=== PATIENT | male | born 1950 | race Caucasian/White ===

== ENCOUNTER 2017-08-17 11:07 | Emergency (ER) | payer MEDICARE ==
[2017-08-17 11:19] VITALS: BP 122/74
--- NOTE | 2017-08-17 14:39 | Emergency Department Report ---
ED Back Pain/Injury HPI - General Chief Complaint: Back Pain/Injury Stated Complaint: BACK PAIN Time Seen by Provider: 08/17/17 13:45 Source: patient Limitations: No Limitations - History of Present Illness Initial Comments: 67-year-old male past medical history hypertension, obesity, [place], subdural hemorrhage presents with complaint of several days of left-sided lower back pain radiating to left buttock and left leg. Patient states that it was particularly bothersome when he woke up out of bed this morning. States it feels like a cramping sensation in his left buttock. Denies saddle paresthesias denies bladder or bowel incontinence. Patient is ambulatory without assistance and uses a cane on occasion and is walking with a cane today. Patient is fully lucid denies fevers or chills denies abdominal pain denies nausea or vomiting denies dysuria or increased urinary frequency. Patient states he has had this issue intermittently in the past. Denies any falls or direct trauma or excessive strain. States he took a Tylenol at home but it did not help his pain which is why he came here. MD Complaint: back pain Onset/Timin -: days(s) Similar Symptoms Previously: Yes Place: home Severity: moderate Severity scale (0 -10): 5 Quality: aching Consistency: intermittent - Related Data Home Medications Medication Instructions Recorded Confirmed Last Taken Atorvastatin Calcium [Lipitor] 1 tab PO DAILY 07/23/14 07/23/14 07/28/14 Clopidogrel Bisulfate [Plavix] 1 tab PO DAILY 07/23/14 07/23/14 07/28/14 Metoprolol [Lopressor TAB] 1 tab PO DAILY 07/23/14 07/23/14 07/28/14 Bimatoprost 0.01%(Nf) [Lumigan] 1 drop OU DAILY 07/26/14 07/26/14 07/28/14 Previous Rx's Medication Instructions Recorded Last Taken Type oxyCODONE /ACETAMINOPHEN [Percocet 1 tab PO Q6HR PRN #20 tablet 03/08/15 Unknown Rx 5/325] Acetaminophen 500 mg PO Q6H PRN #30 tablet 08/17/17 Unknown Rx traMADol [Ultram 50 MG tab] 50 mg PO Q6HR PRN #10 tablet 08/17/17 Unknown Rx Allergies Allergy/AdvReac Type Severity Reaction Status Date / Time No Known Allergies Allergy Verified 08/17/17 11:16 ED Review of Systems ROS: Stated complaint: BACK PAIN Other details as noted in HPI Constitutional: denies: chills, fever Eyes: denies: eye pain, eye discharge, vision change ENT: denies: ear pain, throat pain Respiratory: denies: cough, shortness of breath, wheezing Cardiovascular: denies: chest pain, palpitations Endocrine: no symptoms reported Gastrointestinal: denies: abdominal pain, nausea, diarrhea Genitourinary: denies: urgency, dysuria Musculoskeletal: denies: back pain, joint swelling, arthralgia Skin: denies: rash, lesions Neurological: denies: headache, weakness, paresthesias Psychiatric: denies: anxiety, depression Hematological/Lymphatic: denies: easy bleeding, easy bruising ED Past Medical Hx - Past Medical History Hx Hypertension: Yes Hx Heart Attack/AMI: Yes Hx Asthma: No Hx COPD: No Hx Tuberculosis: No Hx HIV: No - Surgical History Hx Open Heart Surgery: Yes (CARDIAC BYPASS 2011) Additional Surgical History: "brain surgery". CABG 2011 - Social History Smoking Status: Current Every Day Smoker Substance Use Type: Alcohol - Medications Home Medications: Home Medications Medication Instructions Recorded Confirmed Last Taken Type Atorvastatin Calcium [Lipitor] 1 tab PO DAILY 07/23/14 07/23/14 07/28/14 History Clopidogrel Bisulfate [Plavix] 1 tab PO DAILY 07/23/14 07/23/14 07/28/14 History Metoprolol [Lopressor TAB] 1 tab PO DAILY 07/23/14 07/23/14 07/28/14 History Bimatoprost 0.01%(Nf) [Lumigan] 1 drop OU DAILY 07/26/14 07/26/14 07/28/14 History oxyCODONE /ACETAMINOPHEN [Percocet 1 tab PO Q6HR PRN #20 tablet 03/08/15 Unknown Rx 5/325] Acetaminophen 500 mg PO Q6H PRN #30 tablet 08/17/17 Unknown Rx traMADol [Ultram 50 MG tab] 50 mg PO Q6HR PRN #10 tablet 08/17/17 Unknown Rx ED Physical Exam - General Limitations: No Limitations General appearance: alert, in no apparent distress - Head Head exam: Present: atraumatic, normocephalic - Eye Eye exam: Present: normal appearance, PERRL, EOMI - ENT ENT exam: Present: mucous membranes moist - Neck Neck exam: Present: normal inspection - Respiratory Respiratory exam: Present: normal lung sounds bilaterally. Absent: respiratory distress - Cardiovascular Cardiovascular Exam: Present: regular rate, normal rhythm. Absent: systolic murmur, diastolic murmur, rubs, gallop - GI/Abdominal GI/Abdominal exam: Present: soft, normal bowel sounds - Rectal Rectal exam: Present: deferred - Extremities Exam Extremities exam: Present: normal inspection - Back Exam Back exam: Present: normal inspection, full ROM (flexion/extension, lateral rotation intact), paraspinal tenderness (left sided paraspinal discomfort) - Expanded Back Exam Expanded Back exam: Present: normal rectal tone - Neurological Exam Neurological exam: Present: alert, oriented X3, CN II-XII intact, normal gait - Expanded Neurological Exam Expanded Patient oriented to: Present: person, place, time Cranial nerves: EOM's Intact: Normal Cerebellar function: Finger to Nose: Normal Sensory exam: Upper Extremity Light Touch: Normal, Lower Extremity Light Touch: Normal Motor strength exam: RUE: 5, LUE: 5, RLE: 5, LLE: 5 Best Eye Response (Grimes): (4) open spontaneously Best Motor Response (Roderick): (6) obeys commands Best Verbal Response (Grimes): (5) oriented Grimes Total: 15 - Psychiatric Psychiatric exam: Present: normal affect, normal mood - Skin Skin exam: Present: warm, dry, intact, normal color. Absent: rash ED Course Vital Signs 08/17/17 11:16 Temperature 97.8 F Pulse Rate 79 Respiratory 18 Rate Blood Pressure 122/74 O2 Sat by Pulse 95 Oximetry ED Medical Decision Making - Lab Data Result diagrams: 08/17/17 15:25 08/17/17 15:25 - Medical Decision Making A/P: Lower back pain, sciatica 1-short course tramadol, Tylenol when necessary 2-ct shows degenerative spinal changes, no clinical sinss of cauda equina, pt ambulatory, rectal tone good, no bladder or bowl incontinence. ct abdomen otheriwse unremarkable, small nonobstrucing calculi 3-pt feels signficantly better before discharge, given f/u wiht PMD and orthopedics 4- labs and UA unremarkable Critical care attestation.: If time is entered above; I have spent that time in minutes in the direct care of this critically ill patient, excluding procedure time. ED Disposition Clinical Impression: Sciatica of left side Lower back pain Qualifiers: Chronicity: acute Back pain laterality: left Sciatica presence: without sciatica Qualified Code(s): M54.5 - Low back pain Disposition: TO HOME OR SELFCARE Is pt being admited?: No Does the pt Need Aspirin: No Condition: Stable Instructions: Sciatica (ED), Lumbar Radiculopathy (ED), Back Pain (ED) Prescriptions: Acetaminophen 500 mg PO Q6H PRN #30 tablet PRN Reason: Pain traMADol [Ultram 50 MG tab] 50 mg PO Q6HR PRN #10 tablet PRN Reason: Pain Referrals: BOZENA DESHPANDE III, APRN-HERVE [Primary Care Provider] - 3-5 Days [facility] [Provider Group] - 3-5 Days NIYA GARCÍA MD [Staff Physician] - 3-5 Days Time of Disposition: 17:27 Print Language: HAITIAN
[2017-08-17] MEDS ORDERED: ZOFRAN ODT PO ONE (14:40)
[2017-08-17] MEDS ORDERED: NORCO 5/325 PO ONE (14:40)
[2017-08-17 14:55] LABS: Bilirubin,Urine NEG (Negative); Blood,Urine NEG (Negative); Ketones,Urine NEG (Negative); Leukocyte Esterase,Urine NEG (Negative); Mucus,Urine FEW /HPF; Nitrite,Urine NEG (Negative); Protein,Urine <15 mg/dL mg/dL (Negative)
[2017-08-17] MEDS ORDERED: MORPHINE IM ONE (15:16)
[2017-08-17 15:48] LABS: Basophils % (Auto) 0.9 % (0.0-1.8); Eosinophils % (Auto) 2.1 % (0.0-4.3); Hematocrit 48.2 % (35.5-45.6); Hemoglobin 16.1 gm/dl (11.8-15.2); Mean Corpuscular HGB Conc 33 % (32-34); Mean Corpuscular Hemoglobin 32 pg (28-32); Mean Corpuscular Volume 95 fl (84-94); Platelet Count 171 K/mm3 (140-440); Red Blood Count 5.09 M/mm3 (3.65-5.03); Red Cell Distribution Width 14.1 % (13.2-15.2); White Blood Count 4.7 K/mm3 (4.5-11.0)
[2017-08-17 15:56] LABS: Alanine Aminotransferase 38 units/L (7-56); Albumin/Globulin Ratio 1.1 %; Alkaline Phosphatase 102 units/L (35-129); Anion Gap 20 mmol/L; BUN/Creatinine Ratio 16; Blood Urea Nitrogen 11 mg/dL (9-20); Carbon Dioxide 23 mmol/L (22-30); Creatine Kinase 59 units/L (55-170); Glucose 117 mg/dL (75-100); Potassium 4.2 mmol/L (3.6-5.0); Sodium 139 mmol/L (137-145); Total Protein 7.5 g/dL (6.3-8.2)
[2017-08-17 16:11] LABS: Bilirubin,Direct < 0.2 mg/dL (0-0.2); Bilirubin,Indirect 0.5 mg/dL
--- NOTE | 2017-08-17 16:51 | Cat Scan Report ---
FINAL REPORT PROCEDURE: CT ABDOMEN PELVIS WO CON TECHNIQUE: Computerized axial tomography of the abdomen and pelvis was performed without intravenous contrast. This study is performed without intravascular contrast material and its sensitivity for abdominal and pelvic pathology, including neoplasms, inflammation, abscess, free fluid, thrombosis, arterial dissection and infarction, is reduced compared with a contrast enhanced study. HISTORY: L-sideflank pain. ?renal colic COMPARISON: No prior studies are available for comparison. FINDINGS: Visualized lower thorax: There is small focus of ground-glass opacity in the lateral left lower lobe. Liver: Normal size and attenuation. Spleen: Normal size and attenuation. Gallbladder and biliary system: Normal. Pancreas: Normal. Adrenals: Normal. Kidneys: There is a 2 millimeter nonobstructive calculus in the left kidney upper pole. No hydronephrosis bilaterally. GI tract: The appendix is visualized and does not appear inflamed. Scattered colonic diverticula are present. No bowel obstruction or acute inflammation is seen. Small hiatal hernia. Lymph nodes and mesentery: Normal. Vasculature: Aortic and bilateral common iliac artery calcification. Bladder: Normal. Reproductive organs: Normal. Peritoneum: No free fluid. Musculoskeletal structures: Multilevel thoracolumbar spine degenerative disc changes. Other: None. IMPRESSION: Punctate nonobstructive left renal calculus. No hydronephrosis or ureteral calculi are identified. No acute inflammatory changes are seen.
== END 2017-08-17 17:39 | disposition home or self-care (01) ==
LOC: ED 11:07
DX: M54.42 Lumbago with sciatica, left side (principal); I25.2 Old myocardial infarction; F17.200 Nicotine dependence, unspecified, uncomplicated; I10 Essential (primary) hypertension; E66.9 Obesity, unspecified; R10.9 Unspecified abdominal pain
CPT/HCPCS: 36415; 74176; 80048; 80074; 81001; 82550; 85025; 96372; 99284; J2270; Q0162

== ENCOUNTER 2018-03-19 09:23 | Emergency (ER) | payer MEDICARE ==
[2018-03-19 09:31] VITALS: BP 127/74
[2018-03-19 09:52] LABS: Bilirubin,Urine NEG (Negative); Blood,Urine MOD (Negative); Color,Urine Yellow (Yellow); Mucus,Urine 1+ /HPF; Urobilinogen,Urine < 2.0 mg/dL (<2.0); WBC,Urine > 182.0 /HPF (0.0-6.0)
[2018-03-19] MEDS ORDERED: ZOFRAN IV ONE (10:38)
[2018-03-19] MEDS ORDERED: LEVAQUIN PO ONE (10:38)
[2018-03-19] MEDS ORDERED: NACL 0.9% 1000 ML 1,000 ML IV ONE (10:38)
--- NOTE | 2018-03-19 10:40 | Emergency Department Report ---
ED Male HPI - General Chief complaint: Urogenital-Male Stated complaint: EXCESSIVE UNRINATION Time Seen by Provider: 03/19/18 10:24 Source: patient Mode of arrival: Ambulatory Limitations: No Limitations - History of Present Illness Initial comments: This is a 68-year-old male patient here reports excessive urination with burning since last night. He reports that he feeling chills with pain to his back pointing to both flank areas. Pain is 8 out of 10 and comes and goes and a cane. Denies any nausea or vomiting. Denies any blood in urine. Denies any penile discharge or scrotal pain. Denies any history of kidney stones. Denies any abdominal pain. Denies any loss of bowel or bladder function. Denies any trauma. Denies any numbness or tingling to extremities or loss of bowel or bladder function. Denies any history of prostate problems MD Complaint: dysuria, other (excessive urine) -: Last night Location: right flank, left flank Radiation: none, other (both flank) Severity: moderate Severity scale (0 -10): 5 Quality: aching, burning Consistency: intermittent Improves with: none Worsens with: urination dysuria, other (back pain and urinary frequency/dysuria). denies: discharge, swelling, mass, rash, urinary retention, blood in urine, fever, nausea/vomiting , incontinence - Related Data Sexually active: No Home Medications Medication Instructions Recorded Confirmed Last Taken Atorvastatin Calcium [Lipitor] 1 tab PO DAILY 07/23/14 07/23/14 07/28/14 Clopidogrel Bisulfate [Plavix] 1 tab PO DAILY 07/23/14 07/23/14 07/28/14 Metoprolol [Lopressor TAB] 1 tab PO DAILY 07/23/14 07/23/14 07/28/14 Bimatoprost 0.01%(Nf) [Lumigan] 1 drop OU DAILY 07/26/14 07/26/14 07/28/14 Previous Rx's Medication Instructions Recorded Last Taken Type oxyCODONE /ACETAMINOPHEN [Percocet 1 tab PO Q6HR PRN #20 tablet 03/08/15 Unknown Rx 5/325] Acetaminophen 500 mg PO Q6H PRN #30 tablet 08/17/17 Unknown Rx Ciprofloxacin HCl [Ciprofloxacin 500 mg PO Q12HR 10 Days #20 tab 03/19/18 Unknown Rx TAB] Ondansetron [Zofran TAB] 8 mg PO Q8HR PRN #12 tablet 03/19/18 Unknown Rx traMADol [Ultram 50 MG tab] 50 mg PO Q6HR PRN #12 tablet 03/19/18 Unknown Rx Allergies Allergy/AdvReac Type Severity Reaction Status Date / Time No Known Allergies Allergy Verified 03/19/18 09:28 ED Review of Systems ROS: Stated complaint: EXCESSIVE UNRINATION Other details as noted in HPI Constitutional: fever. denies: chills, weakness Eyes: denies: eye pain, vision change ENT: denies: throat pain Respiratory: denies: cough, shortness of breath, SOB with exertion, SOB at rest , stridor, wheezing Cardiovascular: denies: chest pain, palpitations, edema, syncope Gastrointestinal: denies: abdominal pain, nausea, vomiting, diarrhea, constipation, hematemesis, hematochezia Genitourinary: dysuria, frequency. denies: urgency, hematuria, discharge, testicular pain, testicular mass Musculoskeletal: back pain. denies: joint swelling, arthralgia Skin: denies: rash, lesions Neurological: denies: headache, weakness, numbness, paresthesias, confusion, abnormal gait, vertigo ED Past Medical Hx - Past Medical History Previous Medical History?: Yes Hx Hypertension: Yes Hx Heart Attack/AMI: Yes Hx Asthma: No Hx COPD: No Hx Tuberculosis: No Hx HIV: No Additional medical history: high cholesterol - Surgical History Past Surgical History?: Yes Hx Open Heart Surgery: Yes (CARDIAC BYPASS 2011) Additional Surgical History: "brain surgery". CABG 2012 - Family History Family history: hypertension - Social History Smoking Status: Current Some Day Smoker Substance Use Type: Alcohol - Medications Home Medications: Home Medications Medication Instructions Recorded Confirmed Last Taken Type Atorvastatin Calcium [Lipitor] 1 tab PO DAILY 07/23/14 07/23/14 07/28/14 History Clopidogrel Bisulfate [Plavix] 1 tab PO DAILY 07/23/14 07/23/14 07/28/14 History Metoprolol [Lopressor TAB] 1 tab PO DAILY 07/23/14 07/23/14 07/28/14 History Bimatoprost 0.01%(Nf) [Lumigan] 1 drop OU DAILY 07/26/14 07/26/14 07/28/14 History oxyCODONE /ACETAMINOPHEN [Percocet 1 tab PO Q6HR PRN #20 tablet 03/08/15 Unknown Rx 5/325] Acetaminophen 500 mg PO Q6H PRN #30 tablet 08/17/17 Unknown Rx Ciprofloxacin HCl [Ciprofloxacin 500 mg PO Q12HR 10 Days #20 tab 03/19/18 Unknown Rx TAB] Ondansetron [Zofran TAB] 8 mg PO Q8HR PRN #12 tablet 03/19/18 Unknown Rx traMADol [Ultram 50 MG tab] 50 mg PO Q6HR PRN #12 tablet 03/19/18 Unknown Rx ED Physical Exam - General Limitations: No Limitations General appearance: alert, in no apparent distress - Head Head exam: Present: atraumatic, normocephalic, normal inspection - Eye Eye exam: Present: normal appearance, PERRL, EOMI. Absent: nystagmus Pupils: Present: normal accommodation - ENT ENT exam: Present: normal exam, normal orophraynx, mucous membranes moist, TM's normal bilaterally, normal external ear exam - Neck Neck exam: Present: normal inspection, full ROM, other (no C-spine tenderness). Absent: tenderness, lymphadenopathy - Respiratory Respiratory exam: Present: normal lung sounds bilaterally. Absent: respiratory distress, chest wall tenderness - Cardiovascular Cardiovascular Exam: Present: regular rate, normal rhythm, normal heart sounds. Absent: systolic murmur, diastolic murmur - GI/Abdominal GI/Abdominal exam: Present: soft, normal bowel sounds. Absent: distended, tenderness, guarding, rebound, rigid, organomegaly, mass, bruit, pulsatile mass , hernia - Extremities Exam Extremities exam: Present: normal inspection, full ROM, normal capillary refill , other (No CCE, +2 pulses). Absent: tenderness, pedal edema, joint swelling, calf tenderness - Back Exam Back exam: Present: normal inspection, full ROM, CVA tenderness (R), CVA tenderness (L), other (ambulates without any difficulties). Absent: tenderness , muscle spasm, paraspinal tenderness, vertebral tenderness, rash noted - Neurological Exam Neurological exam: Present: alert, oriented X3, normal gait, reflexes normal. Absent: motor sensory deficit - Psychiatric Psychiatric exam: Present: normal affect, normal mood - Skin Skin exam: Present: warm, dry, intact, normal color. Absent: rash ED Course Vital Signs 03/19/18 09:28 Temperature 99.2 F Pulse Rate 99 H Respiratory 20 Rate Blood Pressure 127/74 O2 Sat by Pulse 98 Oximetry - Reevaluation(s) Reevaluation #1: 03/19/18 11:04 Patient given Tylenol 975 mg po, Zofran 8 mg IV for back pain and to prevent nausea. He was given Levaquin 750 mg by mouth and 1 L of normal saline infusing Reevaluation #2: 03/19/18 11:52 Pain is controlled after Tylenol 975 mg given. [employer] Manager service used to explain laboratory results, diagnosis and CT scan findings. He voiced understanding ED Medical Decision Making - Lab Data Result diagrams: 03/19/18 10:52 03/19/18 10:52 Lab Results 03/19/18 03/19/18 03/19/18 Range/Units 09:36 10:52 10:52 WBC 8.7 (4.5-11.0) K/mm3 RBC 4.70 (3.65-5.03) M/mm3 Hgb 15.5 H (11.8-15.2) gm/dl Hct 45.7 H (35.5-45.6) % MCV 97 H (84-94) fl MCH 33 H (28-32) pg MCHC 34 (32-34) % RDW 14.4 (13.2-15.2) % Plt Count 171 (140-440) K/mm3 Lymph % (Auto) 11.9 L (13.4-35.0) % Ray % (Auto) 11.4 H (0.0-7.3) % Eos % (Auto) 0.6 (0.0-4.3) % Baso % (Auto) 0.4 (0.0-1.8) % Lymph # 1.0 L (1.2-5.4) K/mm3 Ray # 1.0 H (0.0-0.8) K/mm3 Eos # 0.0 (0.0-0.4) K/mm3 Baso # 0.0 (0.0-0.1) K/mm3 Seg Neutrophils % 75.7 H (40.0-70.0) % Seg Neutrophils # 6.6 (1.8-7.7) K/mm3 Sodium 138 (137-145) mmol/L Potassium 3.8 (3.6-5.0) mmol/L Chloride 99.0 (98-107) mmol/L Carbon Dioxide 24 (22-30) mmol/L Anion Gap 19 mmol/L BUN 9 (9-20) mg/dL Creatinine 0.8 (0.8-1.5) mg/dL Estimated GFR > 60 ml/min BUN/Creatinine Ratio 11 % Glucose 119 H (75-100) mg/dL Calcium 9.4 (8.4-10.2) mg/dL Urine Color Yellow (Yellow) Urine Turbidity Clear (Clear) Urine pH 5.0 (5.0-7.0) Ur Specific [place] 1.018 (1.003-1.030) Urine Protein 30 mg/dl (Negative) mg/dL Urine Glucose (UA) Neg (Negative) mg/dL Urine Ketones Neg (Negative) mg/dL Urine Blood Mod (Negative) Urine Nitrite Neg (Negative) Urine Bilirubin Neg (Negative) Urine Urobilinogen < 2.0 (<2.0) mg/dL Ur Leukocyte Esterase Lg (Negative) Urine WBC (Auto) > 182.0 H (0.0-6.0) /HPF Urine RBC (Auto) 88.0 (0.0-6.0) /HPF U Epithel Cells (Auto) 1.0 (0-13.0) /HPF Urine Mucus 1+ /HPF Urine culture pending - Radiology Data Radiology results: report reviewed CT scan of the abdomen and pelvis without contrast shows no any acute findings. Patient with diverticulosis sigmoid colon with stool in colon. dictated by radiologist and reviewed by myself. Patient: KINDRA PADILLA MR#: [id number] : 1950 Acct:[id number] Age/Sex: 68 / M ADM Date: 03/19/18 Loc: ED Attending Dr: Ordering Physician: AMANUEL HANCOCK Date of Service: 03/19/18 Procedure(s): CT abdomen pelvis wo [facility] Accession Number(s): [id number] cc: AMANUEL HANCOCK CT scan of abdomen and pelvis without IV contrast: History: UTI with bilateral flank pain and blood in urine. Findings: Mild pulmonary venous congestion/pulmonary edema/bilateral lower lobe pneumonia. Normal liver spleen pancreas and gallbladder. Normal adrenals. Normal kidneys and bladder. No free intraperitoneal fluid or air. No evidence of adenopathy. Atherosclerotic abdominal aorta without aneurysm. No evidence of appendicitis . Gaseous colon with moderate volume stool in colon. Few scattered diverticula in the sigmoid. No evidence of diverticulitis. Impression: Diverticulosis sigmoid colon with stool in colon. Transcribed By: PTP Dictated By: ANTONELLA CORDOBA MD Electronically Authenticated By: ANTONELLA CORDOBA MD Signed Date/Time: 03/19/18 105 DD/ 105 TD/TT: 03/19/18 1054 - Medical Decision Making Via director software development This is a 68-year-old male here complaining of urinary burning and frequency with bilateral flank pain and also reporting chills. He is here to be evaluated Patient was seen and examined by myself and he urinalysis done which shows positive leukocyte Estrace, positive white blood cell and moderate amount of blood with positive CVA tenderness on physical exam. culture sent. CBC and BMP stable findings CT scan of abdomen and pelvis without contrast shows No acute findings except for diverticulosis in the sigmoid colon with stool in colon. CT findings discussed with patient and he voiced understanding Patient had colonoscopy less than 5 years ago which he said was normal and he said he has an appointment with his primary care physician in less than a month. A/P: 1: Bilateral Flank Pain: resolved with Tylenol 975 mg by mouth. We will discharge home on Ultram 2: Dysuria and urinary frequency-positive UA see below. 3: Acute cystitis with hematuria-UA positive for leukocyte esterase and white blood cells moderate amount of blood. Patient started on Levaquin 750 mg by mouth in emergency room and will be discharged home in ciprofloxacin 4:Diverticulosis-Stable. Pt with Colonoscopy < 5 years and has GI doctor Prescription given for Ultram, Zofran, ciprofloxacin. Patient educated on medication, diagnosis, treatment plan and need to follow-up and he voiced understanding. He was encouraged to read discharge instruction and diverticulosis and diet associated with diagnosis. Referral to primary care and call center agent which patient already has. Patient discharged home in stable condition with prescription for ciprofloxacin , Zofran and Ultram. Vital signs are stable, afebrile. Patient is nontoxic in appearance. Patient discharged home to follow-up with his primary care physician as he does have 2 days. He voiced understanding of discharge instruction and treatment plan. This was done via director software development - Differential Diagnosis Pyelonephritis, Kidney stones, UTI, Critical care attestation.: If time is entered above; I have spent that time in minutes in the direct care of this critically ill patient, excluding procedure time. ED Disposition Clinical Impression: Acute cystitis with hematuria, Acute flank pain Diverticulosis Qualifiers: Diverticulosis site: diverticulosis of large intestine Diverticulosis bleeding : diverticulosis without bleeding Qualified Code(s): K57.30 - Diverticulosis of large intestine without perforation or abscess without bleeding Disposition: TO HOME OR SELFCARE Is pt being admited?: No Does the pt Need Aspirin: No Condition: Stable Instructions: Diverticulosis (ED), Urinary Tract Infection in Men (ED), Diverticulosis Diet (ED), Dysuria (ED), Flank Pain (ED) Additional Instructions: He supposedly a primary care physician in 2 days status post urinary tract infection. Follow discharge instruction on diverticulosis diet. Take antibiotic for urinary tract infection and Ultram for pain, Zofran for nausea if needed as prescribed You can continue follow-up for GI Dr. Prescriptions: Ciprofloxacin HCl [Ciprofloxacin TAB] 500 mg PO Q12HR 10 Days #20 tab Ondansetron [Zofran TAB] 8 mg PO Q8HR PRN #12 tablet PRN Reason: Nausea traMADol [Ultram 50 MG tab] 50 mg PO Q6HR PRN #12 tablet PRN Reason: Pain Referrals: BOZENA DESHPANDE III, ESTEBAN [Primary Care Provider] - 03/21/18 [facility] [Provider Group] - 03/21/18 Print Language: TUNISIAN
[2018-03-19] MEDS ORDERED: TYLENOL PO ONE (11:06)
--- NOTE | 2018-03-19 11:16 | Cat Scan Report ---
CT scan of abdomen and pelvis without IV contrast: History: UTI with bilateral flank pain and blood in urine. Findings: Mild pulmonary venous congestion/pulmonary edema/bilateral lower lobe pneumonia. Normal liver spleen pancreas and gallbladder. Normal adrenals. Normal kidneys and bladder. No free intraperitoneal fluid or air. No evidence of adenopathy. Atherosclerotic abdominal aorta without aneurysm. No evidence of appendicitis . Gaseous colon with moderate volume stool in colon. Few scattered diverticula in the sigmoid. No evidence of diverticulitis. Impression: Diverticulosis sigmoid colon with stool in colon.
[2018-03-19 11:25] LABS: Basophils % (Auto) 0.4 % (0.0-1.8); Eosinophils % (Auto) 0.6 % (0.0-4.3); Hematocrit 45.7 % (35.5-45.6); Hemoglobin 15.5 gm/dl (11.8-15.2); Lymphocytes % (Auto) 11.9 % (13.4-35.0); Mean Corpuscular HGB Conc 34 % (32-34); Mean Corpuscular Hemoglobin 33 pg (28-32); Mean Corpuscular Volume 97 fl (84-94); Monocytes % (Auto) 11.4 % (0.0-7.3); Platelet Count 171 K/mm3 (140-440); Red Cell Distribution Width 14.4 % (13.2-15.2)
[2018-03-19 11:34] LABS: BUN/Creatinine Ratio 11; Blood Urea Nitrogen 9 mg/dL (9-20); Calcium 9.4 mg/dL (8.4-10.2); Hemolysis Index 15
== END 2018-03-19 12:20 | disposition home or self-care (01) ==
LOC: ED 09:23
DX: K57.30 Diverticulosis of large intestine without perforation or abscess without bleeding (principal); N30.01 Acute cystitis with hematuria; R10.9 Unspecified abdominal pain; I10 Essential (primary) hypertension; I25.2 Old myocardial infarction; E78.00 Pure hypercholesterolemia, unspecified; Z72.0 Tobacco use
CPT/HCPCS: 36415; 74176; 80048; 81001; 85025; 87076; 87086; 87186; 96374; 99284; J2405; J7030